=== PATIENT | female | born 1945 | race Caucasian/White ===

== ENCOUNTER → 2016-07-28 | Outpatient (CLI) | payer OTHER ==
[~2016-07-28] MED LIST: B COMPLEX #11 TA1 PO; BIOTIN1 MG PO; CALTRATE 600600 MG PO; CENTRUM SILVER1 CTB PO; CHROMIUM PICOLI1 TAB PO; CINNAMON500 MG PO; EFFEXOR-XR150 MG PO; FISH OIL1000 MG PO; FLONASE NASAL S16 GM NS; GLUCOPHAGE500 MG/TAB PO; L-LYSINE500 MG PO; LIPITOR20 MG PO; MENEST0.3 MG PO; NEURONTIN300 MG/CAP PO; NORCO 325 MG-7.1 TAB PO; PROZAC 20MG20 MG PO; ROXICODONE 55 MG/TAB PO; VITAMIN D3400 IU PO
== END ==
LOC: MC.RAD 07:00
DX: Z12.31 Encounter for screening mammogram for malignant neoplasm of breast (principal); R92.1 Mammographic calcification found on diagnostic imaging of breast

== ENCOUNTER → 2016-10-15 | Outpatient (REF) | LOC: WSOH 16:13 | DX: Z02.89 Encounter for other administrative examinations (principal) ==

== ENCOUNTER → 2017-08-25 | Outpatient (CLI) | payer OTHER | LOC: MC.RAD 06:48 | DX: Z12.31 Encounter for screening mammogram for malignant neoplasm of breast (principal) ==

== ENCOUNTER 2017-10-18 17:20 | Emergency (ER) | payer OTHER ==
[~2017-10-18] VITALS: Ht 160 cm; Wt 59.1 kg
[2017-10-18 17:20] VITALS: TEMP 98.3
[2017-10-18 17:33] LABS: BASO # 0.1 (0.0-0.2); BASO % 1.1 % (0.0-2.0); EOS # 0.4 (0.0-0.7); EOS % 6.2 % (0-4.0); GRAN # 3.6 (1.4-6.5); GRAN % 51.1 % (42.2-75.2); HEMATOCRIT 38.6 % (37.0-47.0); HEMOGLOBIN 12.7 g/dl (12.5-16.0); LYMPH # 2.2 (1.2-3.4); LYMPH % 31.3 % (20.0-51.0); MEAN CELL VOLUME 92 fl (80.0-100.0); MEAN CORPUSCULAR HEMOGLOBIN 30 pg (27.0-31.0); MEAN CORPUSCULAR HGB CONC 33 g/dl (33.0-37.0); MEAN PLATELET VOLUME 10.2 fl (7.4-10.4); MONO # 0.7 (0.1-0.6); MONO % 10.2 % (1.7-9.3); PLATELET COUNT 222 K/mm3 (130-400); REDCELL DISTRIBUTION WIDTH-CV 12.3 % (11.5-14.5)
[2017-10-18 17:42] LABS: ALBUMIN 3.9 gm/dL (3.5-5.0); BILIRUBIN,TOTAL 0.3 mg/dL (0.0-1.0); C-REACTIVE PROTEIN 0.6 mg/dL (0.0-0.9); CREATININE, serum 0.94 mg/dL (0.52-1.25)
[2017-10-18] MEDS ORDERED: ESTRACE0.5 MG PO (18:12)
[2017-10-18] MEDS ORDERED: MULTI VITAMINS1 TAB PO (18:13)
[2017-10-18] MEDS ORDERED: OMEGA-3 1000 MG1 CAP PO (18:13)
[2017-10-18] MEDS ORDERED: THE MEDICINE S200 M2 PO (18:13)
[2017-10-18] MEDS ORDERED: PREDNISONE20 MG PO (19:12)
[2017-10-18] MEDS ORDERED: ZYRTEC 10MG10 MG PO (19:39)
[2017-10-18] MEDS ORDERED: BACTRIM DS 8001 TAB PO (19:39)
[2017-10-18 19:49] VITALS: BP 150/63; PULSE 73
== END 2017-10-18 19:50 | disposition home or self-care (01) ==
LOC: COL.ER 17:20
PROVIDERS: Emergency Medicine
DX: G51.0 Bell's palsy (principal); E11.9 Type 2 diabetes mellitus without complications; I10 Essential (primary) hypertension; E78.5 Hyperlipidemia, unspecified; Z90.89 Acquired absence of other organs; Z90.710 Acquired absence of both cervix and uterus; Z87.891 Personal history of nicotine dependence
CPT/HCPCS: J2930; J7040

== ENCOUNTER → 2018-09-10 | Outpatient (CLI) | payer OTHER ==
[~2018-09-10] MED LIST changes: +BACTRIM DS 8001 TAB PO; +ESTRACE0.5 MG PO; +MULTI VITAMINS1 TAB PO; +OMEGA-3 1000 MG1 CAP PO; +PREDNISONE20 MG PO; +THE MEDICINE S200 M2 PO; +ZYRTEC 10MG10 MG PO
== END ==
LOC: MC.RAD 07:12
DX: Z12.31 Encounter for screening mammogram for malignant neoplasm of breast (principal)

== ENCOUNTER → 2019-09-23 | Outpatient (CLI) | payer OTHER, BC | LOC: MC.RAD 09-22 08:30 | DX: Z12.31 Encounter for screening mammogram for malignant neoplasm of breast (principal); N63.10 Unspecified lump in the right breast, unspecified quadrant ==

== ENCOUNTER → 2019-09-30 | Outpatient (CLI) | payer BC | LOC: MC.RAD 08:17 | DX: N63.10 Unspecified lump in the right breast, unspecified quadrant (principal) ==

== ENCOUNTER → 2019-10-04 | Outpatient (CLI) | payer BC | LOC: MC.RAD 12:48 | DX: N60.01 Solitary cyst of right breast (principal) ==

== ENCOUNTER → 2019-12-08 | Outpatient (CLI) | payer OTHER | LOC: MC.RAD 10:43 | DX: N63.31 Unspecified lump in axillary tail of the right breast (principal) ==

== ENCOUNTER → 2020-01-25 | Outpatient (CLI) | payer OTHER | LOC: COL.RAD 13:46 | DX: M16.12 Unilateral primary osteoarthritis, left hip (principal) ==

== ENCOUNTER → 2020-03-21 | Outpatient (CLI) | payer OTHER | LOC: MHCPAIN 12:51 | DX: M47.817 Spondylosis without myelopathy or radiculopathy, lumbosacral region (principal); M53.3 Sacrococcygeal disorders, not elsewhere classified; M54.5 Low back pain; M25.552 Pain in left hip; M16.12 Unilateral primary osteoarthritis, left hip; M41.86 Other forms of scoliosis, lumbar region | CPT/HCPCS: G0463 ==

== ENCOUNTER → 2020-10-05 | Outpatient (CLI) | payer OTHER | LOC: MC.RAD 12:45 | DX: Z12.31 Encounter for screening mammogram for malignant neoplasm of breast (principal) ==

== ENCOUNTER → 2021-10-09 | Outpatient (CLI) | payer OTHER | LOC: MC.RAD 07:06 | DX: Z12.31 Encounter for screening mammogram for malignant neoplasm of breast (principal) ==

== ENCOUNTER → 2022-03-18 | Outpatient (CLI) | payer OTHER | LOC: COL.RAD 03-12 09:30 | DX: K57.30 Diverticulosis of large intestine without perforation or abscess without bleeding (principal); Z86.010 Personal history of colon polyps ==

== ENCOUNTER → 2023-08-18 | Outpatient (CLI) | payer OTHER ==
[2005-12-31 08:40] VITALS: TEMP 97.8
[~2023-08-18] MED LIST changes: +ASPI325T6 PO; -BIOTIN1 MG PO; +CALTRATE-600 W600 MG PO; +CYMBALTA 60MG60 MG PO; +DULOXETINE HCL40 MG PO; +LYSINE1000 MG PO; +MELATONIN1 MG PO; +NATURE'S BLE1000 MCG PO; +SENOKOT S 50 MG1 TAB PO; +ULTRAM 50MG TAB50 MG PO; +VITAMIN D362.5 MC1 PO; +ZETIA 10MG TAB10 MG PO
== END ==
LOC: COL.RAD 15:59
DX: M25.572 Pain in left ankle and joints of left foot (principal)

== ENCOUNTER → 2023-09-23 | Outpatient (RCR) | payer OTHER | END | disposition home or self-care (01) | LOC: MKS.ESL.PT | DX: M25.552 Pain in left hip (principal); Z96.642 Presence of left artificial hip joint ==

== ENCOUNTER 2023-10-16 14:15 | Outpatient (RCR) | payer OTHER | END 2023-10-24 | disposition home or self-care (01) | LOC: MKS.ESL.PT | DX: M25.552 Pain in left hip (principal); Z96.642 Presence of left artificial hip joint ==

== ENCOUNTER 2023-11-18 07:59 | Emergency (ER) | payer OTHER ==
[~2023-11-18] VITALS: Ht 152.4 cm; Wt 54.5 kg
[2023-11-18 08:07] VITALS: TEMP 97.9
[2023-11-18] MEDS ORDERED: NS 1,000 ML IV ONE (08:30)
[2023-11-18 08:34] LABS: BASO # 0.1 K/mm3 (0.0-0.2); BASO % 1.1 % (0.0-2.0); EOS # 0.5 K/mm3 (0.0-0.7); EOS % 7.4 % (0.0-4.0); GRAN # 3.4 K/mm3 (1.4-6.5); HEMATOCRIT 43.7 % (37.0-47.0); HEMOGLOBIN 14.2 g/dl (12.5-16.0); LYMPH # 2.2 K/mm3 (1.2-3.4); LYMPH % 31.4 % (20.0-51.0); MEAN CELL VOLUME 92 fl (80.0-100.0); MEAN CORPUSCULAR HEMOGLOBIN 30 pg (27-31); MEAN CORPUSCULAR HGB CONC 33 g/dl (33.0-37.0); MEAN PLATELET VOLUME 9.8 fl (7.4-10.4); MONO # 0.8 K/mm3 (0.1-0.6); PLATELET COUNT 256 K/mm3 (130-400); RED BLOOD COUNT 4.76 M/mm3 (4.10-5.30); REDCELL DISTRIBUTION WIDTH-CV 13.7 % (11.5-14.5)
[2023-11-18 08:49] LABS: BILIRUBIN,TOTAL 0.3 mg/dL (0.2-1.2); CALCIUM 9.9 mg/dL (8.4-10.2); CREATININE, serum 0.83 mg/dL (0.57-1.11); POTASSIUM 4.2 mEq/L (3.5-4.5); TOTAL PROTEIN 7.2 g/dl (6.2-8.1)
[2023-11-18 08:54] LABS: TROPONIN-I 0.017 ng/mL (0.00-0.033)
[2023-11-18 11:32] VITALS: BP 135/81; PULSE 64
== END 2023-11-18 11:36 | disposition home or self-care (01) ==
LOC: COL.ER 07:59
PROVIDERS: Emergency Medicine
DX: R07.89 Other chest pain (principal); T88.1XXA Other complications following immunization, not elsewhere classified, initial encounter
CPT/HCPCS: J7030

== ENCOUNTER → 2023-12-02 | Outpatient (CLI) | payer OTHER | LOC: MC.RAD 07:06 | DX: Z12.31 Encounter for screening mammogram for malignant neoplasm of breast (principal) ==